=== PATIENT | male | born 1990 | race Caucasian/White ===

== ENCOUNTER 2023-10-27 06:02 | Inpatient (IN) | payer OTHER, SELFPAY ==
[2023-10-27] VITALS (11 sets, daily range): BP systolic 119–159; BP diastolic 70–97; BMI 34.2
--- NOTE | 2023-10-27 02:36 | ED.GENMED ---
History of Present Illness
<GIANLUCA Kidd - Last Filed: 10/27/23 02:57>
General
Chief Complaint: Abdominal Pain
Source: patient
Exam Limitations: none
Time Seen by Provider: 10/27/23 02:25
Nursing documentation reviewed up to this point in time: agreed with
Travel History
Have you had any contact with someone who has COVID-19?: No
Do you have any symptoms of coronavirus? Fever > 100 degrees, chills, cough, shortness of breath, sore throat, loss of taste or smell, muscle aches, or headache?: No
History of Present Illness
History of Present Illness:
patient is a 33 y/o male with PMH of von Willebrand disease presenting for abdominal pain x 12 hours. patient admits the pain is localized to his lower abdomen with no radiation. Patient admits to taking Tylenol that gave no relief. Patient admits
the pain started was waxing and waning earlier but has now become constant, Patient admits to nausea with no episodes of vomiting. Patient admits to change with urination, describes that his urination has been dribbling and he doesn't feel like he
has completely emptied his bladder. patient denies eating since start of pain. Patient denies fever, chills, V/D/C, CP, SOB, FARFAN, blood in the urine or stool, or heartburn. Patient denies recent alcohol or smoking. Patient denies change in diet or
medications. Patient denies any sick contacts.
Past History
<GIANLUCA Kidd - Last Filed: 10/27/23 02:57>
Past History
ED Past Medical History: None
ED Past Surgical History: None
Social History
Living: with family
<Ponce Olson DO - Last Filed: 10/27/23 04:38>
Past History
ED Past Surgical History: Negative Appendectomy
Social History
Tobacco: Non-smoker
Alcohol: None
Drug: None
Employment: Employed
Review of Systems
<GIANLUCA Kidd - Last Filed: 10/27/23 02:57>
Review of Systems
ABD/GI: Reports abdominal pain (lower abdomen pain), nausea and anorexia
: Reports difficulty voiding
Musculoskeletal: Reports no symptoms
<Ponce Olson DO - Last Filed: 10/27/23 04:38>
Review of Systems
All Other Systems: Not applicable
Constitutional: Denies fever or fatigue
EENT: Reports no symptoms
Respiratory: Reports no symptoms
Phy Exam
<GIANLUCA Kidd - Last Filed: 10/27/23 02:57>
Gastrointestinal Exam
Gastrointestinal Exam: tender (lower abdomen discomfort )
Palpation: left lower quadrant: No tenderness and right lower quadrant: No tenderness
<Ponce Olson DO - Last Filed: 10/27/23 04:38>
Physical Exam
Physical Exam:
Physical Exam
General: no apparent distress, not acutely ill
Neck: No jaundice
Heart: s1/s2 regular rate and rhythm, no murmur. equal radial pulses.
Lungs: no acute respiratory distress. clear bilaterally
Abdomen: Tender left greater than right lower abdomen
Neuro: alert and oriented. no focal neurological deficits
Skin: no rash
Psychiatric: well kept. interactive and cooperative
Extremities: no edema.
Course
<GIANLUCA Kidd - Last Filed: 10/27/23 02:57>
Orders/Labs/Results
Orders:
Orders
10/27/23 02:26
Complete Blood Count/With Diff Urgent
Comprehensive Metabolic Panel Urgent
Lipase Urgent
10/27/23 02:55
CT Abd/Pel (IV only)-[facility] only Urgent
Comment:
Reason For Exam: lowe rabd pain
10/27/23 03:00
Urinalysis Reflex To Culture Urgent
Date Specimen was Collected: 10/27/23
Time Specimen was Collected: 02:31
Abnormal Lab Results
10/27/23
02:26
WBC 11.7 H 10^3/uL
(4.8-10.8)
Absolute Neuts (auto) 10.0 H 10^3/uL
(1.4-6.5)
Absolute Lymphs (auto) 1.1 L 10^3/uL
(1.2-3.4)
Neutrophils % 85.8 H %
(42.2-75.2)
Lymphocytes % 9.3 L %
(20.5-51.1)
Glucose 113 H mg/dl
(70-99)
Total Protein 8.4 H g/dl
(6.3-8.2)
Albumin 5.1 H g/dl
(3.5-5.0)
10/27/23 02:26
10/27/23 02:26
Vital Signs
Initial and Last Documented VS:
Initial Vital Signs
Temp Pulse Resp BP Pulse Ox
97.9 F 62 20 142/92 97
10/27/23 01:46 10/27/23 01:46 10/27/23 01:46 10/27/23 01:46 10/27/23 01:46
Last Documented Vital Signs
Temp Pulse Resp BP Pulse Ox
98.8 F 88 18 137/70 96
10/27/23 02:56 10/27/23 04:00 10/27/23 04:00 10/27/23 02:56 10/27/23 04:00
Jammielt;Ponce Olson, DO - Last Filed: 10/27/23 04:38>
Orders/Labs/Results
Orders:
Orders
10/27/23 02:26
Complete Blood Count/With Diff Urgent
Comprehensive Metabolic Panel Urgent
Lipase Urgent
10/27/23 02:55
CT Abd/Pel (IV only)-[facility] only Urgent
Comment:
Reason For Exam: lowe rabd pain
10/27/23 03:00
Urinalysis Reflex To Culture Urgent
Date Specimen was Collected: 10/27/23
Time Specimen was Collected: 02:31
Abnormal Lab Results
10/27/23
02:26
WBC 11.7 H 10^3/uL
(4.8-10.8)
Absolute Neuts (auto) 10.0 H 10^3/uL
(1.4-6.5)
Absolute Lymphs (auto) 1.1 L 10^3/uL
(1.2-3.4)
Neutrophils % 85.8 H %
(42.2-75.2)
Lymphocytes % 9.3 L %
(20.5-51.1)
Glucose 113 H mg/dl
(70-99)
Total Protein 8.4 H g/dl
(6.3-8.2)
Albumin 5.1 H g/dl
(3.5-5.0)
10/27/23 02:26
10/27/23 02:26
Vital Signs
Initial and Last Documented VS:
Initial Vital Signs
Temp Pulse Resp BP Pulse Ox
97.9 F 62 20 142/92 97
10/27/23 01:46 10/27/23 01:46 10/27/23 01:46 10/27/23 01:46 10/27/23 01:46
Last Documented Vital Signs
Temp Pulse Resp BP Pulse Ox
98.8 F 88 18 137/70 96
10/27/23 02:56 10/27/23 04:00 10/27/23 04:00 10/27/23 02:56 10/27/23 04:00
<GIANLUCA Kidd - Last Filed: 10/27/23 02:57>
MDM/Problems Addressed
Differential Diagnosis Includes:
urinary retention
nephrolithiasis
appendicitis
diverticulitis
<GIANLUCA Kidd - Last Filed: 10/27/23 02:57>
*Critical Care Note
Total Time (30-74mins, 75-104mins- exclusive of procedures): Not Applicable
<Ponce Olson DO - Last Filed: 10/27/23 04:38>
*Radiology
Radiology exam reviewed: radiology read reviewed
*Pulse Oximetry
Patient hypoxic: no
<Ponce Olson DO - Last Filed: 10/27/23 04:38>
Update Note
Update Note:
4:30 AM discussed with vision radiology CT consistent with appendicitis reviewed with patient he does have von Willebrand's he states as do his family members sounds like he gets DDAVP, no current procedures tech
Message sent to hospitalist oncologist general surgery
ED Attending Note
<GIANLUCA Kidd - Last Filed: 10/27/23 02:57>
-
Portions of this chart may have been created with voice recognition software.� Occasional wrong word or��sound alike� substitutions may have occurred due to the inherent limitations of voice recognition software.
<Ponce Olson DO - Last Filed: 10/27/23 04:38>
ED Attending Note
Patient seen and examined by attending physician: Yes
I performed the substantive portion of visit, reviewed & personally made and approve the management plan that is documented in note by myself or JASON.: Yes
ED Attending Note:
Seen with student examined independently 33-year-old male von Willebrand's fracture apparently gets DDAVP before procedures, not currently seen by hematology presents with lower abdominal pain and nausea
Plan will be labs CT scan and serial abdominal exams urinalysis
Discharge Plan
Departure
Patient Disposition: Admit
Date of Disposition: 10/27/23
Time of Disposition: 04:37
Admit to: Med/Surg
Presentation/result/management discussed w/ accepting MD/DO: Hospitalist
Condition: Good
Discharge Problem:
Acute appendicitis
Prescriptions:
No Action
No Current Medications
0
Referrals:
Oscar Garcia DO [Family Provider] -
Interventions
Interventions:
*Risk Screen - Suicide Last Done: 10/27/23 01:46
*General Assessment Last Done: 10/27/23 02:29
*Neglect/Abuse Screening Last Done: 10/27/23 01:46
ED- Fall Risk Assessment Last Done: 10/27/23 02:29
*ED COVID-19 Vaccine History Last Done: 10/27/23 02:29
HK-Rcgrxl-Weoiiiclxj Assessment Last Done: 10/27/23 02:59
[2023-10-27 03:02] LABS: % Basophils 0.4 % (0-2); % Eosinophils 0.5 % (0-6); % Immature Granulocytes 0.3 % (0-0.5); % Lymphocytes 9.3 % (20.5-51.1); % Monocytes 3.7 % (1.7-9.3); % Neutrophils 85.8 % (42.2-75.2); Absolute Basophils 0.1 10^3/uL (0-0.2); Absolute Eosinophils 0.1 10^3/uL (0-0.7); Absolute Lymphocytes 1.1 10^3/uL (1.2-3.4); Absolute Monocytes 0.4 10^3/uL (0.1-0.6); Hematocrit 43.1 % (39.0-52.0); Mean Corp Hgb Conc. 34.8 g/dL (33.0-37.0); Mean Corpuscular Hgb 29.1 pg (27.0-31.0); Mean Corpuscular Volume 83.5 fL (80.0-94.0); Mean Platelet Volume 9.9 fL (7.4-10.4); Nucleated Red Blood Cells % 0 % (-); Platelet Count 295 10^3/uL (130-400); Red Blood Cell Count 5.16 10^6/uL (4.70-6.10); Red Cell Dist. Width 12.8 % (11.5-14.5); White Blood Cell Count 11.7 10^3/uL (4.8-10.8)
[2023-10-27 03:16] LABS: ALT (SGPT) 24 U/L (0-50); AST (SGOT) 30 U/L (17-59); Albumin 5.1 g/dl (3.5-5.0); Alkaline Phosphatase 105 U/L (38-126); Blood Urea Nitrogen 19 mg/dl (9-20); Calcium 9.9 mg/dl (8.4-10.2); Carbon Dioxide 27 mmol/L (22-30); Chloride 103 mmol/L (98-107); Estimated Creatinine Clearance > 125 ml/min; Glucose 113 mg/dl (70-99); Lipase 74 U/L (23-300); Potassium 3.9 mmol/L (3.5-5.1); Sodium 139 mmol/L (135-145); Total Bilirubin 1.3 mg/dl (0.2-1.3); Total Protein 8.4 g/dl (6.3-8.2); eGFR > 60.00
[2023-10-27 03:24] LABS: Urine Albumin Negative (Neg - Trace); Urine Bilirubin Negative (Negative); Urine Character Clear (Clear); Urine Color Yellow; Urine Glucose Negative (Negative); Urine Ketone Negative (Negative); Urine Leukocyte Negative (Negative); Urine Nitrite Negative (Negative); Urine Occult Blood Negative (Negative); Urine Urobilinogen Negative (Neg - 1+)
[2023-10-27] MEDS: ZOFRAN 4 MG IV (04:44)
[2023-10-27] MEDS: DILAUDID 0.5 MG IV (04:44)
[2023-10-27] MEDS: ZOSYN 50 IV (04:44)
--- NOTE | 2023-10-27 04:51 | HPS.HSE ---
Family Physician
-
Family Physician: Oscar Garcia
Chief Complaint
-
abdominal pain
History of Present Illness
33M HX von Willebrand disease pw acute waxing and waning lower abdominal abdominal pain for last 12 hrs came to ER when pain becomes constant. Reports nausea but no vomiting. Assciated with abn urination. No fever
Medical History
Past Medical History
Past Medical History: Reports Other (HX von Willebrand disease)
Past Surgical History: Reports None
Social History
Tobacco: Non-smoker
Drug: None
Family History
Family History: Not pertinent
Allergies / Home Medications
Allergies reflects when Allergies were last updated in [facility].
Home Medications with original date entered in [facility]
Allergy/Medication List:
Allergies
Allergy/AdvReac Type Severity Reaction Status Date / Time
bee venom protein (honey bee) Allergy Unknown Verified 10/27/23 01:49
Home Medications
No Meds [No Current Medications] 10/27/23
Review of Systems
-
Constitutional: Reports No Symptoms; Denies Fever
EENT: Reports No Symptoms
Respiratory: Reports No Symptoms
Cardiac: Reports No Symptoms
Abdomen/GI: Reports Abdominal Pain and Nausea; Denies Vomiting
: Reports No Symptoms
Musculoskeletal: Reports No Symptoms
Skin: Reports No Symptoms
Neurological: Reports No Symptoms
Endocrine: Reports No Symptoms
Hematologic/Lymphatic: Reports No Symptoms
Psych: Reports No Symptoms
Physical Exam
Vital Signs
Vital Signs
Temp Pulse Resp BP Pulse Ox
98.8 F 88 18 137/70 96
10/27/23 02:56 10/27/23 04:00 10/27/23 04:00 10/27/23 02:56 10/27/23 04:00
Physical Exam
General: Well Developed and No Apparent Distress
HEENT: NormoCephalic, Anicteric and Moist mucous membranes
Respiratory: Clear; No Wheezes, Rales or Rhonchi
Cardiac: S1/S2 and Regular Rhythm
GI: Soft and Tender (lower abdomen Rt > Lt )
Genito-urinary: Deferred by me
Musculoskeletal: No Edema
Skin: Warm
Neuro: AO x 3
Psych: Calm
Laboratory Results
-
10/27/23 02:26
10/27/23 02:26
Laboratory Results
Total Bilirubin 1.3 mg/dl (0.2-1.3) 10/27/23 02:
AST 30 U/L (17-59) 10/27/23:
ALT 24 U/L (0-50) 10/27/23 02:26
Alkaline Phosphatase 105 U/L (38-126) 10/27/23 02:
Lipase 74 U/L (23-300) 10/27/23 02:26
Impression/Plan
-
Data
WCC 11.7
nl CMP
NEG UA
CT AP
Mod acute appendicitis
No free air or abscess
Last hospitalist admission: NIL
ASSESSMENT & PLAN
Acute uncomplicated appendicitis
Known VW Dz
-to give DDAPV s 0.3mcg/kg (max 20mcg) given IV over 15-30 minutes- 30 min prior to surgery
- NPO and IVF
- Empiric IV Zosyn
- Narcotic analgesia
- anti emetics
- GS consulted
Known VW Dz
Wt 108 kg
-to give DDAPV s 0.3mcg/kg (max 20mcg) given IV over 15-30 minutes- 30 min prior to surgery per in home sales consultant - ordered as oncall
- Uat Tester consulted
DVT Px: SCD
Full code
IP MS
--- NOTE | 2023-10-27 07:42 | CON.GS ---
Medical History
-
Chief Complaint: Abdominal pain
History of Present Illness:
Patient is a 33 yo M with a PMH of obesity and von Willebrand's disease who presents with less than 24 hours of abdominal pain. Mr. Pryor states that his symptoms began acutely yesterday afternoon at approximately 3 PM. Prior to this he states that
he was feeling well. He describes an uncomfortable pain in his central/slightly right sided abdomen. Associated nausea, but no vomiting. No fevers or chills. He notes increased frequency of urination, denies hematuria. No issues with moving his
bowels. No chronic GI issues. No personal or family history of colon cancer or IBD.
Of note, Mr. Pryor does not follow with a wiring technician. He states that he had a nasal spray prior to a orthopedic procedure on his LEFT clavicle. He does not receive any intervention prior to dental procedures or checkups. No excessive nosebleeds
or bleeding with shaving.
Past Medical History
Past Medical History: Other (Von Willebrand's disease)
Past Surgical History: Orthopedic (LEFT clavicle fracture)
Social History
Tobacco: Vaping
Alcohol: Occasional
Drug: None
Personal: Partner
Living: With Family
Employment: Employed
Family History
Family History: Reviewed & Noncontributory
Allergies / Home Medications
Allergy/AdvReac Type Severity Reaction Status Date / Time
bee venom protein (honey bee) Allergy Unknown Verified 10/27/23 01:49
Medication Instructions Recorded Confirmed Type
No Meds [No Current Medications] 10/27/23 10/27/23 History
Review of Systems
-
A 10 point review of systems was completed, and was negative except as per HPI.
Physical Exam
Vital Signs
Temp Pulse Resp BP Pulse Ox
98.8 F 68 18 119/70 99
10/27/23 02:56 10/27/23 05:00 10/27/23 05:00 10/27/23 05:00 10/27/23 05:00
10/26/23 10/27/23 10/28/23
06:59 06:59 06:59
Actual Weight 108 kg
Body Mass Index (BMI) 34.2
Lab Results
10/27/23 02:26
10/27/23 02:26
WBC 11.7 10^3/uL (4.8-10.8) H 10/27/23 02:26
Hgb 15.0 g/dL (13.0-18.0) 10/27/23 02:
Hct 43.1 % (39.0-52.0) 10/27/23 02:
Plt Count 295 10^3/uL (130-400) 10/27/23 02:26
Abs Immat Gran (auto) 0.0 10^3/uL (0-0.05) 10/27/23 02:26
Neutrophils % 85.8 % (42.2-75.2) H 10/27/23 02:26
Physical Exam
General: Well Developed, Well Nourished and No Apparent Distress
HEENT: Normocephalic and Anicteric
Respiratory: Non Labored Respirations
Cardiac: Regular Rhythm
GI: Soft, Non Distended, Tender (Mild RIGHT mid-abdomen), Obese and Other (Non-peritoneal)
Musculoskeletal: No Edema
Skin: Warm and Dry
Neuro: Nonfocal/Grossly Intact
Data Reviewed
-
CT Scan: Image Personally Visualized and interpreted
Labs: Labs Reviewed by me
Assessment / Plan
-
Patient is a 33 yo M p/w acute appendicitis
The natural history and pathophysiology of appendicitis was discussed. Anatomy was reviewed. CT scan imaging as a relates to his appendix was reviewed. Options for management including medical management with antibiotics versus surgical
management with appendectomy were considered and discussed. The pros and cons of both approaches was discussed. Specifically, we discussed failure of medical management and future episodes of appendicitis versus surgical risks.
Plan for a laparoscopic appendectomy. The procedure itself, as well as the risks, benefits, and alternatives was discussed. Specifically, we discussed the risks of bleeding, infection, injury to surrounding structures (bowel, bladder), staple line
leak, need for open procedure. Typical postprocedural recovery was discussed. All questions answered. Consent signed.
-- Laparoscopic appendectomy
-- Antibiotics: Zosyn
-- NPO, IVF
-- Perioperative DDAVP, Hematology curbside consult appreciate help
--- NOTE | 2023-10-27 07:55 | W.SUR.PREOP ---
Pre-Operative Surgical Note
-
I have examined this patient prior to the performance of the scheduled procedure.
The patient's condition is unchanged from the time of the current History and
Physical and the patient is able to undergo the scheduled procedure.
[2023-10-27] MEDS: DDAVP 57.5 MCG IV (09:29)
--- NOTE | 2023-10-27 11:39 | W.IMMPOSTOP ---
Addendum entered and electronically signed by Deewy Couch MD 10/27/23 12:10:
[facility]#[id number]
Original Note:
Surgical Immed Post Op Note
-
Primary Surgeon: Khoa
Assisting Surgeon: None
Pre-op Diagnosis: Acute appendicitis
Post-op Diagnosis: Acute appendicitis
Procedure Performed: Laparoscopic appendectomy
Anesthesia Type: General
Specimen / Cultures:
1. Appendix
Estimated Blood Loss: 7 cc
Complications: None
Operative Findings:
1. Severe tip appendicitis, no perforation, retrocecal difficult dissection
2. Base taken with rodriguez load stapler, mesentery and attachments with Ligasure
--- NOTE | 2023-10-27 12:51 | W.PN.HOSP.TC ---
Today's Communication/Plan
-
Discharge
Assessment / Plan
Assessment / Plan
Gen-AAOx3, NAD
HEENT-NC, AT, anicteric, clear oral mm
Neck-supple
CV-reg, no M, +S1/S2
Lungs-clear B/L
Abd-soft, mild tenderness
Ext-no edema
Musculoskeletal-no cyanosis, clubbing
Skin-warm and dry
Neuro-grossly non-focal
Psych-calm, cooperative
Acute appendicitis -stable status post laparoscopic appendectomy today. No perforation noted. Diet resumed by surgery. Anticipate discharge this afternoon as per general surgery. Outpatient follow-up.
History of von Willebrand's disease -DDAVP administered preoperatively.
Obesity due to excess calories
Full code
Dispo -discharge this afternoon if he remains stable. Outpatient follow-up.
Anticipated Discharge: Today
Subjective/Interval History
-
Date of Service: October 27, 2023
Patient seen and examined in the recovery room. Complaining of mild pain.
Objective Data
-
Labs:
Laboratory Results
10/27/23
02:26
WBC 11.7 H
Hgb 15.0
Hct 43.1
Plt Count 295
Sodium 139
Potassium 3.9
Chloride 103
Carbon Dioxide 27
BUN 19
Creatinine 0.9
Glucose 113 H
Calcium 9.9
Total Bilirubin 1.3
AST 30
ALT 24
Alkaline Phosphatase 105
Vital Signs:
Vital Signs
Temp Pulse Resp BP Pulse Ox
97.9 F 65 15 134/82 94
10/27/23 11:50 10/27/23 12:45 10/27/23 12:45 10/27/23 12:45 10/27/23 12:15
Review of Systems
-
History Source: Patient
All other systems: Reviewed and negative
--- NOTE | 2023-10-27 14:01 | W.DS.TRANS ---
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
-
Discharge Instructions:
Discharge Diagnosis/Procedures Acute appendicitis
Diet Regular
Activity No strenuous activity
Additional Activity No heavy lifting (>20 lbs) or strenuous
activities for 2 weeks postoperatively
Driving Restrictions No driving if too sore or taking narcotics
Bathing Restrictions OK to Shower
Wound Care Keep incisions clean and dry. Glue will flake
off in 2 to 3 weeks. Stitches will dissolve.
Instructions:
Stand-Alone Forms:
Changes to Home Medications: No
Discharge Medications:
DC Medications w/original date entered in [employer]
acetaminophen 500 mg tablet (Tylenol Extra Strength) 500 mg PO BIDPRN PRN mild pain 10/27/23
docusate sodium 100 mg capsule (Stool Softener) 100 mg PO DAILY PRN constipation 10/27/23
oxycodone 5 mg tablet 5 mg PO Q4HPRN PRN breakthrough/severe pain #10 tabs 10/27/23
therapeutic multivitamin 1 tab PO DAILY Supplement 10/27/23
Home Medication Changes
Pending Results: No
== END 2023-10-27 13:49 | disposition home or self-care (01) | DRG 398 ==
LOC: PACUI 06:02
PROVIDERS: ADMITTING PHYSICIAN Internal Medicine; ATTENDING PHYSICIAN Hospitalist; CONSULT PHYSICIAN Surgery; EMERGENCY PHYSICIAN Emergency Medicine; FAMILY PHYSICIAN Family Medicine
PROC: 0DTJ4ZZ Resection of Appendix, Percutaneous Endoscopic Approach (ICD-10-PCS; 2023-10-27)
DX: K35.80 Unspecified acute appendicitis (principal); D68.00 Von Willebrand disease, unspecified; E66.01 Morbid (severe) obesity due to excess calories; Z68.34 Body mass index [BMI] 34.0-34.9, adult
CPT/HCPCS: 88304; 74177; 80053; 81003; 83690; 85025; 96374; 96375; 99285; J2597; Q9967

== ENCOUNTER 2024-09-23 15:43 | Emergency (ER) | payer OTHER, SELFPAY ==
[2024-09-23 15:55] VITALS: BP 158/105
[2024-09-23 16:55] LABS: COVID-19 Antigen Negative (Negative)
--- NOTE | 2024-09-23 19:49 | ED.GENMED ---
History of Present Illness
General
Chief Complaint: Cough
Source: patient and spouse
Exam Limitations: none
Time Seen by Provider: 09/23/24 18:37
Nursing documentation reviewed up to this point in time: agreed with
History of Present Illness
History of Present Illness:
Patient is a 34-year-old male with history of von Willebrand's presents to the ER for evaluation. Patient is off-and-on sore throat for weeks and when he strongly clears his throat he has been spitting up blood mixed in his mucus. He reports the
mucus is clear he reports he is not coughing up blood. He does not feel ill denies any fevers denies any difficulty swallowing. He is not short of breath.
For previous surgeries in the past he has required DDAVP.
He has no other complaints. No other bleeding complaints. No black stools
Past History
Past History
ED Past Medical History: None
ED Past Surgical History: None; Negative Appendectomy
Social History
Tobacco: Non-smoker
Alcohol: None
Drug: None
Living: with family
Employment: Employed
Review of Systems
Review of Systems
Allergies reviewed?: Yes
All Other Systems: ROS reviewed and negative except as documented in HPI and ROS
Constitutional: Reports no symptoms
EENT: Reports sore throat and other (spitting up small amt of bright red blood when clearing his throat )
Respiratory: Denies cough
Cardiac: Reports no symptoms
ABD/GI: Reports no symptoms
: Reports no symptoms
Musculoskeletal: Reports no symptoms
Skin: Reports no symptoms
Neurological: Reports no symptoms
Psychiatric: Reports no symptoms
Phy Exam
General Physical Exam
General Presentation: no apparent distress
General age: appears stated age
General Skin: warm and dry
General Habitus: normal
General Mental: alert
General Hydration: appears well hydrated
ENT Exam
ENT Exam: EOMI, neck supple and other (Throat is red however uvula midline no exudate no obvious bleeding or dried blood in the pharynx; no dried blood in nose)
Cardiovascular Exam
Cardiovascular Exam: regular rate/rhythm, no murmur and normal peripheral pulses
Pulmonary Exam
Pulmonary Exam: lungs clear and no respiratory distress
Neurological Exam
Neurological Exam: alert and oriented x3
Musculoskeletal Exam
Musculoskeletal Exam: full ROM
Skin Exam
Skin Exam: normal color and warm/dry
Psychiatric Exam
Psychiatric Exam: normal mood/affect
Course
Orders/Labs/Results
Orders:
Orders
09/23/24 16:00
COVID-19 Antigen Urgent
Source: Nasal Swab
Influenza A+B Rapid Molecular Urgent
OSMEL Source: Nasal Swab
Specimen Description:
09/23/24 20:51
Complete Blood Count/With Diff Urgent
Comprehensive Metabolic Panel Urgent
Abnormal Lab Results
09/23/24
20:51
BUN 21 H mg/dl
(9-20)
Glucose 102 H mg/dl
(70-99)
ALT 67 H U/L
(0-50)
09/23/24 20:51
09/23/24 20:51
Vital Signs
Initial and Last Documented VS:
Initial Vital Signs
Temp Pulse Resp BP Pulse Ox
98.3 F 79 18 158/105 98
09/23/24 15:55 09/23/24 15:55 09/23/24 15:55 09/23/24 15:55 09/23/24 15:55
Last Documented Vital Signs
Temp Pulse Resp BP Pulse Ox
98.3 F 79 18 158/105 98
09/23/24 15:55 09/23/24 15:55 09/23/24 15:55 09/23/24 15:55 09/23/24 15:55
Casing Tier consulted with Physician
Casing Tier consulted with physician?: Yes
Name of Physician Consulted: Dr Armas
MDM/Problems Addressed
Differential Diagnosis Includes:
not limited to: throat irritation
MDM/Problems Addressed:
34-year-old male with history of von Willebrand's presents to the ER for evaluation. Patient has had intermittent sore throat for the past several weeks and when he clears his throat he will spit up blood mucus. He denies any actual hemoptysis.
He denies any shortness of breath. Because he has von Willebrand's he was sent by urgent care for evaluation. He is in no acute distress likely from mild irritation from clearing his throat with sore throat labs unremarkable. pt in no distress
will plan for d/c home.
Chronic conditions affecting care:
Von Willebrand's
*Pulse Oximetry
Patient hypoxic: no
*Critical Care Note
Total Time (30-74mins, 75-104mins- exclusive of procedures): Not Applicable
ED Attending Note
-
Portions of this chart may have been created with voice recognition software.� Occasional wrong word or��sound alike� substitutions may have occurred due to the inherent limitations of voice recognition software.
Discharge Plan
Departure
Patient Disposition: Home (Routine Discharge)
Date of Disposition: 09/23/24
Time of Disposition: 21:32
Patient with high blood pressure during this ER visit?: Yes
Condition: Fair
Discharge Problem:
Throat irritation
Instructions: BLOOD PRESSURE
Prescriptions:
No Action
therapeutic multivitamin Tablet
1 tab PO DAILY
acetaminophen [Tylenol Extra Strength] 500 mg Tablet
500 mg PO BIDPRN PRN (Reason: mild pain)
docusate sodium [Stool Softener] 100 mg Capsule
100 mg PO DAILY PRN (Reason: constipation)
oxycodone 5 mg tablet
5 mg PO Q4HPRN PRN (Reason: breakthrough/severe pain) Qty: 10 0RF
Referrals:
Luber,Oscar, DO [Family Provider] -
Activity Restrictions/Additional Instructions:
Symptoms are likely from throat irritation. Be sure to stay well-hydrated. Return if any worsening of symptoms.
Follow-up with family doctor in the next 2-3 days. return if any worsening of symptoms
Interventions
Interventions:
*Risk Screen - Suicide Last Done: 09/23/24 17:37
*General Assessment Last Done: 09/23/24 15:55
*Neglect/Abuse Screening Last Done: 09/23/24 17:37
*ED COVID-19 Vaccine History Last Done: 09/23/24 17:37
ED- Pulmonary Assessment Last Done: 09/23/24 17:37
Discharge Date and Time
Print Language: MOLDOVAN
[2024-09-23 21:01] LABS: % Basophils 0.6 % (0-2); % Eosinophils 3.7 % (0-6); % Immature Granulocytes 0.3 % (0-0.5); % Lymphocytes 33.4 % (20.5-51.1); % Monocytes 6.4 % (1.7-9.3); % Neutrophils 55.6 % (42.2-75.2); Absolute Eosinophils 0.2 10^3/uL (0-0.7); Absolute Lymphocytes 2.1 10^3/uL (1.2-3.4); Absolute Monocytes 0.4 10^3/uL (0.1-0.6); Absolute Neutrophils 3.5 10^3/uL (1.4-6.5); Hemoglobin 14.7 g/dL (13.0-18.0); Mean Corp Hgb Conc. 34.2 g/dL (33.0-37.0); Mean Corpuscular Hgb 29.3 pg (27.0-31.0); Mean Corpuscular Volume 85.8 fL (80.0-94.0); Mean Platelet Volume 9.4 fL (7.4-10.4); Nucleated Red Blood Cells % 0 % (-); Platelet Count 307 10^3/uL (130-400); Red Blood Cell Count 5.01 10^6/uL (4.70-6.10); Red Cell Dist. Width 12.7 % (11.5-14.5); White Blood Cell Count 6.3 10^3/uL (4.8-10.8)
[2024-09-23 21:17] LABS: ALT (SGPT) 67 U/L (0-50); AST (SGOT) 39 U/L (17-59); Albumin 4.6 g/dl (3.5-5.0); Alkaline Phosphatase 105 U/L (38-126); Blood Urea Nitrogen 21 mg/dl (9-20); Calcium 9.5 mg/dl (8.4-10.2); Carbon Dioxide 27 mmol/L (22-30); Chloride 101 mmol/L (98-107); Glucose 102 mg/dl (70-99); Potassium 4.2 mmol/L (3.5-5.1); Sodium 137 mmol/L (135-145); Total Bilirubin 0.9 mg/dl (0.2-1.3); Total Protein 7.9 g/dl (6.3-8.2); eGFR > 60.00
[2024-09-23 21:36] VITALS: BP 128/83
[2024-09-23 21:41] VITALS: BP 158/76
== END 2024-09-23 21:42 | disposition home or self-care (01) ==
LOC: EMR 15:43
PROVIDERS: Emergency Medicine; Nurse Practitioner; EMERGENCY PHYSICIAN Student in an Organized Health Care Education/Training Program; FAMILY PHYSICIAN Family Medicine
DX: R07.0 Pain in throat (principal); D68.00 Von Willebrand disease, unspecified; Z90.49 Acquired absence of other specified parts of digestive tract
CPT/HCPCS: 99283; 80053; 85025; 87502; 87811